=== PATIENT | female | born 1970 ===

== ENCOUNTER 2017-02-04 18:50 | Emergency (ER) | payer OTHER, MEDICAID ==
[2017-02-04 19:07] VITALS: BP 119/69; PULSE 79; RESP 18; O2SAT 97
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
== END 2017-02-04 19:45 | disposition home or self-care (01) ==
DX: S59.912A Unspecified injury of left forearm, initial encounter (principal); V89.9XXA Person injured in unspecified vehicle accident, initial encounter

== ENCOUNTER → 2018-11-07 | Outpatient (CLI) | payer MEDICAID | LOC: FIMAGING 07:35 | PROVIDERS: ATTEND Physical Medicine & Rehabilitation | DX: S43.431A Superior glenoid labrum lesion of right shoulder, initial encounter (principal); M75.51 Bursitis of right shoulder ==